=== PATIENT | male | born 1960 | race Caucasian/White ===

== ENCOUNTER 2021-12-05 11:51 | Outpatient (CLI) | payer BC, SELFPAY ==
[2021-12-05 13:27] LABS: Basophils Absolute Auto 0.02 K/uL (0.00-0.30); Basophils Percent Auto 0.3 % (0.0-3.0); Eosinophils Absolute Auto 0.18 K/uL (0.00-0.50); Eosinophils Percent Auto 2.8 % (0.0-7.0); Hemoglobin* 14.2 gm/dL (13.5-17.5); Immature Granulocytes Abs Auto 0.02 K/uL (0.00-0.30); Lymphocytes Absolute Auto 1.42 K/uL (0.90-2.90); Mean Corpuscular HGB Conc 35 gm/dL (32-36); Mean Corpuscular Hemoglobin 30 pg (26-34); Mean Corpuscular Volume 87 fL (80-100); Monocytes Percent Auto 6.8 % (0.0-11.0); Neutrophils Absolute Auto 4.37 K/uL (1.7-7.0); Neutrophils Percent Auto 67.8 % (42.0-72.0); Platelet Count* 219 K/uL (140-440); RDW Coefficient of Variation % 13.9 % (11.5-15.5); Red Blood Count 4.73 m/uL (4.30-5.90); White Blood Count* 6.45 K/uL (4.50-11.00)
[2021-12-05 13:44] LABS: Slide Review Reflex No
[2021-12-05 14:24] LABS: Chloride* 103 mmol/L (96-114); Potassium* 4.6 mmol/L (3.6-5.1); Sodium* 138 mmol/L (135-149)
[2021-12-05 14:26] LABS: Cholesterol* 179 mg/dL (90-199); Creatinine* 1.1 mg/dL (0.5-1.5); Estimated Glomerular Filt Rate 76 ml/min
[2021-12-05 14:27] LABS: Alanine Aminotransferase* 41 U/L (4-50); Blood Urea Nitrogen* 12 mg/dL (7-30); Calcium* 9.1 mg/dL (8.4-10.6); Carbon Dioxide* 30 mmol/L (20-32); Glucose* 120 mg/dL (60-115); Triglycerides* 210 mg/dL (40-149)
[2021-12-05 14:28] LABS: HDL Cholesterol* 57 mg/dL (>=40); LDL Cholesterol Calculated 80 mg/dL (<100)
[2021-12-05 14:57] LABS: PSA Screen* 0.97 ng/mL (0.10-4.00)
== END 2021-12-05 11:52 | disposition home or self-care (01) ==
PROVIDERS: PCP Family Medicine; Visit Provider Family Medicine
DX: R53.83 Other fatigue (principal); I10 Essential (primary) hypertension; Z12.5 Encounter for screening for malignant neoplasm of prostate; E78.5 Hyperlipidemia, unspecified
CPT/HCPCS: 80048; 80061; 84153; 84443; 84460; 85025

== ENCOUNTER 2022-10-11 14:49 | Outpatient (CLI) | payer BC, SELFPAY ==
[2022-10-11] MEDS: PERFLUTREN LIPID MICROSPHERES 2 ML VIAL IV (15:25)
[2022-10-11 15:49] VITALS: BP 155/88; PULSE 84
--- NOTE | 2022-10-11 21:31 | W.PM.STED ---
Stress Test Note Date Date Seen: 10/11/22 Date of test: 10/11/22 Providers Primary care provider: Portillo Burns Stress test physician: Massiel Hernandez Stress Test Note Stress test ordered: Stress Echo Indication for test: Chest pain Stress test medicine: Definity Results discussion: Resting EKG: Sinus bradycardia, 56 beats per minute. Appears that there may be possible intra conduction delay nonspecific but QRS is not calculated. Resting blood pressure: 163/87 Stress test: Patient exercised on the treadmill following standard [facility] protocol. He exercised to 6 minutes 17 seconds, stopping for reaching appropriate heart rate and maximal exercise capacity. This was equivalent to 7.5 Mets. He had a maximum heart rate of 146 beat per minutes which was 108% of a target calculated heart rate of 134. He had a maximal blood pressure 218/65 but patient did withhold his amlodipine and metoprolol today in preparation for this test. There was no significant arrhythmias or ischemic change. He had a rate pressure product of 23,544. Patient had no symptoms during the stress test. Impression: Subjectively negative, objectively negative EKG portion of this stress test. Follow up suggested: Await echo images to couple this for full formal diagnostic. Patient was discharged to home in stable condition.
== END 2022-10-11 14:50 | disposition home or self-care (01) ==
LOC: STRESS 14:50
PROVIDERS: PCP Family Medicine; Visit Provider Family Medicine
DX: R07.9 Chest pain, unspecified (principal)
CPT/HCPCS: 93016; 93325; 93351; Q9957

== ENCOUNTER 2022-12-20 09:25 | Outpatient (CLI) | payer BC, SELFPAY | END 2022-12-20 09:26 | disposition home or self-care (01) | PROVIDERS: PCP Family Medicine; Visit Provider Family Medicine | DX: E78.5 Hyperlipidemia, unspecified (principal); I10 Essential (primary) hypertension; M10.9 Gout, unspecified; Z12.5 Encounter for screening for malignant neoplasm of prostate | CPT/HCPCS: 80048; 80061; 84153; 84460 ==

== ENCOUNTER 2023-12-24 10:21 | Outpatient (CLI) | payer BC, SELFPAY | END 2023-12-24 10:22 | disposition home or self-care (01) | PROVIDERS: PCP Family Medicine; Visit Provider Family Medicine | DX: E78.2 Mixed hyperlipidemia (principal); I10 Essential (primary) hypertension; Z12.5 Encounter for screening for malignant neoplasm of prostate | CPT/HCPCS: 80048; 80061; 84460; G0103 ==

== ENCOUNTER 2024-11-30 08:15 | Outpatient (CLI) | payer BC, SELFPAY | END 2024-11-30 08:16 | disposition home or self-care (01) | PROVIDERS: PCP Family Medicine; Visit Provider Family Medicine | DX: E78.2 Mixed hyperlipidemia (principal); I10 Essential (primary) hypertension | CPT/HCPCS: 80048; 80061; 84460 ==